=== PATIENT | female | born 1990 | race Caucasian/White ===

== ENCOUNTER → 2020-02-22 12:13 | Outpatient (CLI) | payer OTHER, SELFPAY ==
[2020-02-22 12:53] LABS: Add Manual Diff / Slide Review NO; Basophils Absolute Auto 100 /uL (0-100); Basophils Percent Auto 0.8 % (0-2); Eosinophils Absolute Auto 100 /uL (0-450); Eosinophils Percent Auto 0.8 % (2-4); Hemoglobin 12.6 g/dL (12.0-16.0); Lymphocytes Absolute Auto 1900 /uL (1100-4500); Lymphocytes Percent Auto 27.2 % (25-40); Mean Corpuscular HGB Conc 34.1 % (30-36); Mean Corpuscular Hemoglobin 29.5 PG (26-34); Mean Corpuscular Volume 86.4 fL (80-100); Monocytes Absolute Auto 500 /uL (0-900); Monocytes Percent Auto 6.7 % (3-14); Neutrophils Absolute Auto 4400 /uL (1500-7000); Neutrophils Percent Auto 64.5 % (50-75); Platelet Count 211 X10^3/uL (150-400); Red Blood Cell Count 4.28 X10^6/uL (4.0-5.2); Red Cell Distribution Width 12.9 % (11.6-14.8); White Blood Cell Count 6.8 X10^3/uL (4.5-11.0)
[2020-02-22 13:04] LABS: Appearance Urine UA CLEAR; Bilirubin Urine UA NEGATIVE (NEGATIVE); Color Urine UA YELLOW; Glucose Urine UA NEGATIVE (Negative); Ketones Urine UA NEGATIVE (NEGATIVE); Leukocyte Esterase Urine UA NEGATIVE (NEGATIVE); Nitrite Urine UA NEGATIVE (Negative); Occult Blood Urine UA NEGATIVE (Negative); Protein Urine UA NEGATIVE (Negative); Specific Gravity Urine UA 1.015 (1.000-1.035); Urobilinogen Urine UA 0.2 E.U./dL (0.2)
[2020-02-22 13:09] LABS: pH Urine UA 6.5 (4.5-8.0)
[2020-02-22 14:01] LABS: Hepatitis B Surface Antigen NEGATIVE s/c (NEGATIVE); Rubella Antibody IgG 17.5 IU/mL (>15)
[2020-02-22 14:18] LABS: HIV 1 & 2 Ab/Ag 4th Gen Combo NEGATIVE (NEGATIVE); Hep C Virus Ab w/Reflex Quant NEGATIVE s/c (NEGATIVE)
[2020-02-23 08:07] LABS: RPR Screen Non Reactive (Non Reactive); Varicella IgG Antibody 251 index (Immune >165)
== END ==
PROVIDERS: Referring Provider Obstetrics & Gynecology; Visit Provider Obstetrics & Gynecology
DX: Z34.01 Encounter for supervision of normal first pregnancy, first trimester (principal)
CPT/HCPCS: 36415; 80055; 81003; 86787; 86803; 86850; 86900; 86901; 87086; 87389

== ENCOUNTER → 2020-03-26 10:40 | Outpatient (CLI) | payer OTHER, SELFPAY ==
[2020-03-28 19:07] LABS: AFP, Serum 24.1 ng/mL (.); Estriol, Free 0.93 ng/mL (.); Inhibin A, Dimeric 149.98 pg/mL (.); Inhibin A, MoM 1.13 (.); Maternal Ethnicity Caucasian (.); Maternal Weight 213 lbs (.); Number of Fetuses No (.); OSBR Risk 1 IN 10000 (.); Results Report (.); Test Results *Screen Negative* (.); hCG, MoM 1.09 (.); hCG, Serum 28795 mIU/mL (.)
== END ==
PROVIDERS: Referring Provider Obstetrics & Gynecology; Visit Provider Obstetrics & Gynecology
DX: Z34.90 Encounter for supervision of normal pregnancy, unspecified, unspecified trimester (principal); Z3A.16 16 weeks gestation of pregnancy; Z87.42 Personal history of other diseases of the female genital tract
CPT/HCPCS: 36415; 82105; 82677; 84702; 86336

== ENCOUNTER → 2020-04-22 10:18 | Outpatient (CLI) | payer OTHER, SELFPAY ==
--- NOTE | 2020-04-22 10:19 | DI.US.S_ITS ---
PROCEDURE: US OB >= 14 WEEKS FETUS INDICATIONS: Anatomy Scan OUTSIDE/PRIOR DATING DATA: Last menstrual period (LMP): 11/28/19 . LMP-based estimated date of delivery (ANAY): 09/03/20 . First dating scan (date and location): 01/30/20 . Estimated date of delivery (ANAY) from first dating scan: 09/06/20 . TECHNIQUE: Real-time scanning was performed of the fetus, with image documentation and biometric measurements. Endovaginal scanning: Not performed COMPARISON: [facility], , OB <= 14 WEEKS FETUS, 02/27/2020, 9:47. [facility], , OB <= 14 WEEKS FETUS, 01/30/2020, 8:56. FINDINGS: General: A single living intrauterine gestation is present. Presentation: Vertex. Placenta: No placenta previa identified.. Amniotic fluid index: 11.8 cm, normal range is 5-24 cm. heart rate: 145 beats per minute. Maternal cervical canal: 4.1 cm long. Normal lower limit is 2.5 cm. biometrics: Biparietal diameter: 4.8 cm, 20 weeks 4 days Head circumference: 18.6 cm, 20 weeks 6 days Abdominal circumference: 15.5 cm, 20 weeks 5 days Femur length: 3.7 cm, 21 weeks 5 days Estimated gestational age from initial scan: 20 weeks 3 days Composite gestational age from present scan: 21 weeks 0 days Estimated weight and percentile: 401 g, 82nd percentile Measurement variability for biometric dating: +/- 7 days from 14 weeks to 15 weeks 6 days gestation, +/- 10 days from 16 weeks to 21 weeks 6 days gestation, +/- 2 weeks from 22 weeks to 27 weeks 6 days gestation, +/- 3 weeks for 28 weeks gestation or later. weight reference: 4500 g or EFW >90/95% is considered macrosomia or large for gestational age. EFW <10% is small for gestational age. EFW 5% or less is considered intra-uterine growth restriction. Anatomic survey: Neuro: Ventricles are non-dilated at less than 10 mm. Cisterna magna is normal at 3-11 mm. Cerebellum is normal in size and morphology. Nuchal skin fold: Normal at less than 6 mm between 14-21 weeks gestational age. Face: Nose and lips, facial profile are normal. Spine: No evidence for spina bifida. Heart: 4-chambered heart is present, with normal ventricular outflow tracts. Diaphragm: Diaphragm is intact. Stomach: Left-sided stomach is present. Kidneys: No hydronephrosis. Normal is less than 5 mm in 2nd trimester, less than 7 mm in 3rd trimester. Cord: 3-vessel cord has orthotopic insertion. Bladder: Normal in size. Extremities: All 4 extremities identified. IMPRESSION: Single living intrauterine fetus in vertex presentation. Normal anatomic survey Dictated by: David Watson M.D. on 04/22/2020 at 15:54 Approved by: David Watson M.D. on 04/22/2020 at 15:56
== END ==
PROVIDERS: Referring Provider Obstetrics & Gynecology; Visit Provider Obstetrics & Gynecology
DX: Z36.89 Encounter for other specified antenatal screening (principal); Z3A.21 21 weeks gestation of pregnancy
CPT/HCPCS: 76811

== ENCOUNTER → 2020-06-06 10:07 | Outpatient (CLI) | payer OTHER, SELFPAY ==
[2020-06-06 12:08] LABS: Hematocrit 35.2 % (36-46); Hemoglobin 12.3 g/dL (12.0-16.0)
[2020-06-06 12:25] LABS: GTT (PREG) 1 Hour PP 50gm Dose 121 mg/dL (76-139)
== END ==
PROVIDERS: Referring Provider Obstetrics & Gynecology; Visit Provider Obstetrics & Gynecology
DX: Z34.02 Encounter for supervision of normal first pregnancy, second trimester (principal); Z3A.26 26 weeks gestation of pregnancy
CPT/HCPCS: 36415; 82950; 85014; 85018

== ENCOUNTER → 2020-08-13 15:34 | Outpatient (CLI) | payer OTHER, SELFPAY ==
[2020-08-14 14:08] LABS: Strep Grp B PCR NEG for Grp B Strep
== END ==
PROVIDERS: Visit Provider Obstetrics & Gynecology
DX: Z34.03 Encounter for supervision of normal first pregnancy, third trimester (principal); Z3A.36 36 weeks gestation of pregnancy
CPT/HCPCS: 87653

== ENCOUNTER 2020-09-09 07:30 | Inpatient (IN) | payer OTHER, SELFPAY ==
[2020-09-09] MEDS: OXYTOCIN PREMIX 30 UNIT/500 ML PLAST..BAG IV (08:33)
[2020-09-09] MEDS: LACTATED RINGERS 1,000 ML 100 ML IV ×2 (08:33→13:04)
[2020-09-09 08:35] LABS: Add Manual Diff / Slide Review NO; Basophils Absolute Auto 0 /uL (0-100); Basophils Percent Auto 0.4 % (0-2); Eosinophils Absolute Auto 100 /uL (0-450); Eosinophils Percent Auto 0.5 % (2-4); Hematocrit 36.5 % (36-46); Lymphocytes Absolute Auto 1900 /uL (1100-4500); Lymphocytes Percent Auto 19.6 % (25-40); Mean Corpuscular HGB Conc 35.5 % (30-36); Mean Corpuscular Hemoglobin 31.2 PG (26-34); Mean Corpuscular Volume 87.9 fL (80-100); Monocytes Absolute Auto 600 /uL (0-900); Monocytes Percent Auto 6.1 % (3-14); Neutrophils Absolute Auto 7000 /uL (1500-7000); Neutrophils Percent Auto 73.4 % (50-75); Platelet Count 169 X10^3/uL (150-400); Red Blood Cell Count 4.16 X10^6/uL (4.0-5.2); Red Cell Distribution Width 13.3 % (11.6-14.8); White Blood Cell Count 9.5 X10^3/uL (4.5-11.0)
[2020-09-09 11:03] LABS: COVID19 - ADMIT (NP swab/PCR) Negative (Negative)
[2020-09-09 15:39] VITALS: BP 130/80
[2020-09-09] MEDS: ONDANSETRON 4 MG/2 ML INJ IV (17:51)
--- NOTE | 2020-09-09 19:26 | PM.OBHP.1 ---
OB HPI Date/Time Date of admission: 09/09/20 Date Patient Seen: 09/09/20 Time Patient Seen: 07:30 History of Present Condition Chief complaint: OBSERVATION : 1 Para: 0 Estimated Date of Delivery: 09/07/20 Estimated Gestational Age (weeks): 40+2 Narrative: Antonia Greene is a 29 year old female 1 para 0 at 40-,2/7 weeks gestation for induction of labor with Pitocin Indications Indication for induction OB: post dates History of Present care: good care, initiated at week # (8), number of visits (13) and pounds weight gain (27) Dating criteria: LMP confirmed by 1st trimester US Ultrasounds: normal 1st trimester US and normal mid trimester US Medical complications: none Preadmission Labs Blood type: O (+) positive -: Antibody screen: negative, GBS status: negative, HBsAG: negative, HIV: negative and RPR/VDLR: negative -: Chlamydia screen: not detected and Gonorrhea screen: not detected -: Rubella: immune and Varicella: immune HCT: 36.5 HCAB: negative PAP: Normal Quad screen: Normal Urine: Negative 1 hr GTT: 121 Evaluation Evaluation Baseline heart rate: 135 Variability: Moderate (11-25) monitor accelerations: Present Monitor Decelerations: Absent Status: Category l Cervical dilation (cm): 3 Cervical effacement (%): 90 station: -1 Laboratory results: Laboratory Tests 09/09/20 09/09/20 09/09/20 08:15 08:15 10:11 WBC 9.5 RBC 4.16 Hgb 13.0 Hct 36.5 MCV 87.9 MCH 31.2 MCHC 35.5 RDW 13.3 Plt Count 169 Neut % (Auto) 73.4 Lymph % (Auto) 19.6 L [place] % (Auto) 6.1 Eos % (Auto) 0.5 L Baso % (Auto) 0.4 Neut # (Auto) 7000 Lymph # (Auto) 1900 [place] # (Auto) 600 Eos # (Auto) 100 Baso # (Auto) 0 SARS-CoV-2 (PCR) Negative Blood Type O Positive Antibody Screen Negative PFSH Medical History (Updated 02/04/20 @ 17:29 by Jessica Ariza MD) Anesthesia Asthma (~1990) H. pylori infection (~2014) Infertility (~2008) Irregular menstrual cycle (~2002) PCOS (polycystic ovarian syndrome) (~2008) Seasonal allergies (~1994) Surgical History (Updated 01/29/20 @ 22:04 by Zaira Byrd) Anesthesia History of laparoscopic cholecystectomy (~2009) History of removal of skin mole [place] teeth extracted (~2008) Family History (Updated 01/25/20 @ 09:34 by Susan Benedict RN) Mother No problems noted. Father Cancer Grandmother A-fib Hypertension Grandfather Stroke Rheumatoid arthritis Grandmother Myocardial infarction Congestive heart failure Smoker Grandfather Cancer Hypertension Family/Other Rheumatoid arthritis Social History marital status: household members: spouse lives independently: Yes caregiver/support person: No housing: house pets and animals: Yes (3 dogs. Aware, safe w/ babies. 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 ) caffeine: Yes (Espresso, typically 2 shots/day, or soda. Lately having aversions to coffee) Type(s) of exercise: walking, regular exercise (This summer, was at gym 3 times a week: elliptical, some weights. Last couple months, occasional walking.) and normal ROM and activity frequency: 1-2 times per week duration: 15-30 minutes/day Meds Home Medications and Allergies Home Medications Medication Instructions Recorded Confirmed Type prenat.vits,amos,[id number] 1 tab PO DAILY 01/30/20 09/09/20 History Allergies Allergy/AdvReac Type Severity Reaction Status Date / Time No Known Drug Allergies Allergy Verified 09/04/20 14:51 Exam Vital Signs (past 8 hours): - 09/09/20 15:39 Blood Pressure 130/80 Narrative Exam Narrative: Generally: Patient is sitting up in bed, no acute distress Lungs: Clear to auscultation bilaterally Cardiovascular: Regular rate and rhythm Fundal height: 41 cm Estimated weight: 8-1/2 lb Extremities: Trace edema, 1+ DTRs Objective Labs Result Diagrams: 09/09/20 08:15 Labs: Laboratory Results - last 24 hr 09/09/20 09/09/20 09/09/20 08:15 08:15 10:11 WBC 9.5 RBC 4.16 Hgb 13.0 Hct 36.5 MCV 87.9 MCH 31.2 MCHC 35.5 RDW 13.3 Plt Count 169 Neut % (Auto) 73.4 Lymph % (Auto) 19.6 L [place] % (Auto) 6.1 Eos % (Auto) 0.5 L Baso % (Auto) 0.4 Neut # (Auto) 7000 Lymph # (Auto) 1900 [place] # (Auto) 600 Eos # (Auto) 100 Baso # (Auto) 0 SARS-CoV-2 (PCR) Negative Blood Type O Positive Antibody Screen Negative Assessment and Plan Assessment and Plan Assessment and Plan narrative: Assessment: 29-year-old 1 para 0 for induction of labor at 40-,2/7 weeks gestation Favorable cervix Plan: Pitocin per protocol 2 Artificial rupture membranes when able Epidural as necessary Expected management to spontaneous vaginal delivery Time Spent with Patient Total time spent with greater than 50% in coordination of care (as documented) at patient's floor/unit and/or counseling patient:: 15-24 minutes
--- NOTE | 2020-09-09 19:31 | PM.OBPNLAB ---
Date/Time Date Patient Seen: 09/09/20 Time Patient Seen: 11:03 Pain Control Pain control: tolerating well Pelvic Exam Dilation (cm): 3 Effacement (%): 90 station: -1 Amniotic membrane status: Intact Contractions Monitor mode: External Pitocin rate (mU/min): 10 Contraction frequency (min): 4 Contraction duration (min): 1 Contraction intensity: Mild Status status: Category l Heart Rate Baseline: 135 Monitor Accelerations: Present Monitor Decelerations: Absent Monitor Variability: Moderate Assessment and Plan Assessment: induction ongoing Plan: other (AROM with clear amniotic fluid)
--- NOTE | 2020-09-09 19:32 | PM.OBPNLAB ---
Date/Time Date Patient Seen: 09/09/20 Time Patient Seen: 13:10 Pain Control Pain control: epidural Pelvic Exam Dilation (cm): 3 Effacement (%): 90 station: -1 Amniotic membrane status: Intact Contractions Monitor mode: External Pitocin rate (mU/min): 14 Contraction frequency (min): 3 Contraction duration (min): 1 Contraction pattern: Regular Contraction intensity: Strong/Firm Status status: Category l Heart Rate Baseline: 135 Monitor Accelerations: Present Monitor Decelerations: Absent Monitor Variability: Moderate Assessment and Plan Assessment: induction ongoing Plan: continuous present management
--- NOTE | 2020-09-09 19:33 | PM.OBPNLAB ---
Date/Time Date Patient Seen: 09/09/20 Time Patient Seen: 17:10 Pain Control Pain control: epidural Pelvic Exam Dilation (cm): 9 Effacement (%): 90 station: +1 Amniotic membrane status: Ruptured Contractions Monitor mode: External Pitocin rate (mU/min): 12 Contraction frequency (min): 3 Contraction duration (min): 1 Contraction pattern: Regular Contraction intensity: Strong/Firm Status status: Category l Heart Rate Baseline: 135 Monitor Accelerations: Present Monitor Decelerations: Absent Monitor Variability: Moderate Assessment and Plan Assessment: active labor Plan: continuous present management Comments: Expected management to spontaneous vaginal delivery
[2020-09-09] MEDS: LIDOCAINE 1% 20 ML (20:35)
[2020-09-09] MEDS: OXYTOCIN 10 UNIT/ML VIAL IM (20:40)
--- NOTE | 2020-09-09 21:02 | P.PCNOB_ITS ---
Events: Labor Induction Labor & Delivery Delivery date: 09/09/20 Cervical ripening method: none Induction method: per pitocin protocol Delivery augmentation: rupture of membranes Delivery monitor: external FHT and external uterine Route of delivery: vacuum extraction Indication for instrumentation: maternal exhaustion Episiotomy description: None L&D Laceration Description: Vaginal - 1st Degree and Labial Delivery repair: vicryl Estimated blood loss (mL): 250 Anesthesia Type: Epidural Complications: None Narrative: Patient complete and pushed for 2 hours. At 8:18 p.m. , a live male infant delivered spontaneously in the [place] presentation with vacuum assistance due to maternal exhaustion. One contraction and 2 pulls of the vacuum ended in delivery. The remainder of the body delivered without difficulty and was placed on mom's abdomen. The cord was double clamped and cut after it stopped pulsing. Cord bloods were obtained. Pitocin was given in the IV fluids. The placenta delivered intact with a three-vessel cord at 8:30 p.m.. The fundus was massaged to firm. Bilateral first-degree vaginal and labial lacerations were repaired with 2-0 Vicryl in the usual fashion. Hemostasis was achieved. Estimated blood loss 250 cc. The bladder was emptied of 100 cc of clear yellow urine. Apgars 7 at 1 minute 9 at 5 minutes. Epidural analgesia. . Mom and stable to recovery. [place] Baby 1: Infant gender: Male Presentation: vertex Position: Left Occiput Anterior Placenta delivery description: Spontaneous Cord Vessel Description: 3 Vessels and Clamped/Cut score (1 min): 7 score (5 min): 9 weight: 9 lb 6 oz Plan for aftercare: Routine care
[2020-09-09] MEDS: DERMOPLAST SPRAY 20% 60 ML 1 SPRAY TOP (21:55)
[2020-09-09 21:56] VITALS: TEMP 36.9
[2020-09-09] MEDS: ACETAMINOPHEN 325 MG TABLET 650 MG PO (21:56)
[2020-09-09 21:57] VITALS: TEMP 36.9
[2020-09-09] MEDS: IBUPROFEN 600 MG TABLET PO (21:57)
[2020-09-10] MEDS: ACETAMINOPHEN 325 MG TABLET 650 MG PO ×4 (05:13→23:28)
[2020-09-10] MEDS: IBUPROFEN 600 MG TABLET PO ×3 (05:13→18:15)
[2020-09-10 06:06] LABS: Hematocrit 32.6 % (36-46); Hemoglobin 11.4 g/dL (12.0-16.0)
[2020-09-10] MEDS: DOCUSATE 100 MG CAPSULE PO (12:57)
--- NOTE | 2020-09-10 20:36 | PM.OBPN.1 ---
Subjective - OB Subjective Patient comments: no complaints and pain well controlled baby status: doing well and nursing well feeding status: exclusively breast feeding Date Patient Seen: 09/10/20 Time Patient Seen: 16:00 Exam Narrative Exam Narrative: Generally: Patient is sitting up in bed, holding , no acute distress Fundus: Firm at U Extremities: 1+ edema, negative [place] Objective Labs Result Diagrams: 09/10/20 06:00 Labs: Laboratory Results - last 24 hr 09/10/20 06:00 Hgb 11.4 L Hct 32.6 L Assessment & Plan Plan day: 1 plan OB: routine care Comments: Anticipate discharge September 11, 2020 Time Spent With Patient Time: Total time spent is greater than 50% in coordination of care (as documented) at patient's floor/unit and/or counseling patient: Time with patient: 15-24 minutes
[2020-09-10 21:00] VITALS: TEMP 36.6
[2020-09-11] MEDS: IBUPROFEN 600 MG TABLET PO ×2 (01:25→07:52)
[2020-09-11] MEDS: DOCUSATE 100 MG CAPSULE PO (07:49)
[2020-09-11] MEDS: PRENATAL VIT,CALC/IRON/FOLIC 1 TABLET 1 TAB PO (07:52)
[2020-09-11] MEDS: ACETAMINOPHEN 325 MG TABLET 650 MG PO (07:52)
--- NOTE | 2020-09-11 07:57 | P.DS_ITS ---
Discharge Providers Provider Date of admission: 09/09/20 07:30 Discharge Date: 09/11/20 Consults: 09/10/20 21:06 Consult to Manufacturing Quality Inspector Routine Comment: Discharge provider: Queenie Wan MD Summary Hospital Course Date Patient Seen: 09/11/20 Time Patient Seen: 07:57 Diagnoses: 40 week gestation, vacuum assisted vaginal delivery Hospital Course: Patient was admitted for induction for postdates and had a vacuum assisted vaginal delivery for maternal exhaustion. She is breast-feeding without difficulty. She is ambulating well. She is passing gas. She denies any nausea or vomiting. Patient complains of urinary incontinence and not feeling her bladder is full. Advised patient to urinate every 2-3 hours. Peripartum Data Delivery Method: Assisted Delivery (Vacuum assisted for maternal exhaustion) Laceration Description: Perineal - 1st Degree and Labial Procedures: Pitocin induction, epidural catheter, vacuum assisted vaginal delivery, repair of first-degree labial tear complications: none [place] 1: Gender: Male Disposition of : home Discharge Diagnosis (1) Vaginal delivery: Status: Acute Problem Details: Vacuum assisted for maternal exhaustion Status at Discharge Cognitive/behavioral status at discharge: oriented Functional status at discharge: independent ambulation Overall status at discharge: patient is progressing back to baseline Time Spent with Patient Time attestation: Total time spent providing and/or coordinating discharge services: Time spent: Less than 30 minutes Objective Labs Result Diagrams: 09/10/20 06:00 Exam Vital Signs (past 8 hours): Blood pressure 133/84, pulse of 94, temperature 97.9? Narrative Exam Narrative: Patient's abdomen is soft, nontender. Uterus is firm, at U, nontender. Mild lochia. Extremities without edema and nontender. Patient is O positive, rubella immune, received Tdap in the 3rd trimester. Discharge Plan Discharge Plan Patient Disposition: Home Provider Discharge Comment: Call with fever, chills, or bleeding vaginally more than a pad in an hour Call with signs of depression or anxiety Ibuprofen 600 mg every 6 hours as needed for cramping Tylenol 650 mg every 6 hours as needed for pain Discharge orders & Medications Prescriptions: Continued prenat.vits,amos,[id number]-thsp-gbpss Tablet 1 tab PO DAILY RF: 0 Follow up/Referrals: Jessica Ariza MD [Physician] - 6 Weeks Diet/Activity/Treatments Diet: Regular Activity: No lunging or squatting Nothing in the vagina Skin/Wound/Dressing Care Report to your healthcare provider any signs of infection, such as:: chills, fever, increased pain and unusual drainage Visit Report/Discharge Packet Instructions: DI for Labor and Delivery, Vaginal
[2020-09-11 09:22] VITALS: BP 130/80; PULSE 80; RESP 18; TEMP 36.6
== END 2020-09-11 12:00 | disposition home or self-care (01) | DRG 807 ==
PROVIDERS: Admitting Provider Obstetrics & Gynecology; Referring Provider Obstetrics & Gynecology; Visit Provider Obstetrics & Gynecology
DX: O48.0 Post-term pregnancy (principal); Z37.0 Single live birth; O75.81 Maternal exhaustion complicating labor and delivery; Z3A.40 40 weeks gestation of pregnancy; Z20.822 Contact with and (suspected) exposure to COVID-19
CPT/HCPCS: 01967; 36415; 59050; 59400; 85014; 85018; 85025; 86850; 86900; 86901; 87635; C9803; G0379; J2405; J2590

== ENCOUNTER → 2020-10-05 10:47 | Outpatient (CLI) | payer OTHER, SELFPAY ==
[2020-10-05 11:31] LABS: Appearance Urine UA CLEAR; Bilirubin Urine UA NEGATIVE (NEGATIVE); Color Urine UA YELLOW; Glucose Urine UA NEGATIVE (Negative); Ketones Urine UA NEGATIVE (NEGATIVE); Leukocyte Esterase Urine UA NEGATIVE (NEGATIVE); Nitrite Urine UA NEGATIVE (Negative); Occult Blood Urine UA NEGATIVE (Negative); Protein Urine UA NEGATIVE (Negative); Specific Gravity Urine UA 1.015 (1.000-1.035); Urobilinogen Urine UA 0.2 E.U./dL (0.2)
== END ==
PROVIDERS: Referring Provider Obstetrics & Gynecology; Visit Provider Obstetrics & Gynecology
DX: N39.0 Urinary tract infection, site not specified (principal)
CPT/HCPCS: 81003